=== PATIENT | female | born 1945 | race Hispanic/Latino ===

== ENCOUNTER → 2024-05-16 | Outpatient (CLI) | payer OTHER | END | disposition home or self-care (01) | LOC: RAH 09:00 | PROVIDERS: ATTEND Internal Medicine | DX: Z13.6 Encounter for screening for cardiovascular disorders (principal) | CPT/HCPCS: 75571 ==

== ENCOUNTER 2024-07-21 07:45 | Day surgery (SDC) | payer OTHER, MEDICARE ==
[2024-07-18 10:32] VITALS: BP 123/62; PULSE 66; RESP 18; TEMP 98.1
[2024-07-18 10:48] LABS: BASOPHILS # (AUTO) 0.05 K/uL (0.00-0.20); BASOPHILS % (AUTO) 0.8 % (0.0-5.0); EOSINOPHILS # (AUTO) 0.05 K/uL (0.00-0.70); EOSINOPHILS % (AUTO) 0.8 % (0.0-8.0); HEMATOCRIT 40.9 % (36-48); IMMATURE GRANULOCYTE ABSOLUTE 0.02 K/uL (0-1); LYMPHOCYTES # (AUTO) 1.3 K/uL (1.0-4.8); LYMPHOCYTES % (AUTO) 20.5 % (21.0-51.0); MEAN CORPUSCULAR HEMOGLOBIN 29.1 pg (27.0-33.0); MEAN CORPUSCULAR HGB CONC 32.3 g/dL (32.0-36.0); MEAN CORPUSCULAR VOLUME 90.1 fL (79-99); MONOCYTES # (AUTO) 0.4 K/uL (0.1-1.0); MONOCYTES % (AUTO) 6.7 % (3.0-13.0); NEUTROPHILS # (AUTO) 4.5 K/uL (1.8-7.7); NEUTROPHILS % (AUTO) 70.9 % (40.0-77.0); PLATELET COUNT (AUTO) 227 K/uL (130-400); RED BLOOD CELL COUNT(AUTO) 4.54 MIL/uL (4.00-5.50); RED CELL DISTRIBUTION WIDTH 13.8 % (11.0-15.5); WHITE BLOOD COUNT (AUTO) 6.3 K/uL (4.8-10.8)
[2024-07-18 10:49] LABS: APPEARANCE,URINE CLEAR (CLEAR); BILIRUBIN,URINE NEGATIVE (NEGATIVE); COLOR,URINE COLORLESS (YELLOW); GLUCOSE, URINE (UA) >=1000 mg/dL (NEGATIVE); KETONES,URINE NEGATIVE (NEGATIVE); LEUKOCYTE ESTERASE ,URINE NEGATIVE Leu/uL (NEGATIVE); NITRATE,URINE NEGATIVE (NEGATIVE); PROTEIN,URINE NEGATIVE (NEGATIVE); UROBILINOGEN,URINE 0.2 mg/dL (0.2-1.0)
[2024-07-18 10:52] LABS: ADD UA MICROSCOPIC YES
[2024-07-18 10:57] LABS: INR 1.01 (0.85-1.15); PROTHROMBIN TIME 10.9 SEC (9.6-11.6)
[2024-07-18 10:58] LABS: CREATININE 0.9 mg/dL (0.5-1.0); POTASSIUM 3.6 mmol/L (3.5-5.1)
[2024-07-18 10:59] LABS: MUCUS,URINE RARE LPF (None Seen); RBC,URINE 0-1 /HPF (0-1); SQUAMOUS EPITHELIAL CELL,UR RARE /HPF (0-2); WBC,URINE 0-1 /HPF (0-1)
[2024-07-18 10:59] LABS: PARTIAL THROMBOPLASTIN TIME 27.3 SEC (26.3-35.5)
[2024-07-18 11:20] LABS: B-TYPE NATRIURETIC PEPTIDE 206 pg/mL (0-100)
[~2024-07-21] VITALS: Ht 154.9 cm; Wt 74.2 kg
[2024-07-21] VITALS (9 sets, daily range): BP systolic 105–114; BP diastolic 41–59; PULSE 52–88; RESP 12–18; TEMP 97.3–97.6
[~2024-07-21 07:45] MED LIST: AEC81 PO; CELE200 PO; DOCU100C33 PO; EMPA10TA PO; FURO40TA5 PO; METO-408 PO; OXYB10TA30 PO; PANT40TA55 PO; POTA-364 PO; ROSU10TA72 PO; SACU1TAB PO; VITA800012 PO
[2024-07-21] MEDS: 0.9%NACL 1000ML 1,000 ML IV ONE (08:26)
[2024-07-21] MEDS: metOPROLol sucCINATE 25 MG TAB.SR.24H PO ONE (08:47)
[2024-07-21] MEDS ORDERED: NITROGLYCERIN 50MG VIAL ONE (15:40)
[2024-07-21] MEDS ORDERED: HEParin-NS 1,000 UNIT/500 ML 1,000 ML IV ONE (15:40)
[2024-07-21] MEDS ORDERED: LIDOCAINE HCL 400MG/20ML VIAL ONE (15:40)
[2024-07-21] MEDS ORDERED: IOHEXOL 350 MG/ML 100ML INFUS..BTL IV ONE (15:40)
[2024-07-21] MEDS ORDERED: VERAPAMIL HCL 2.5 MG/ML VIAL ONE (15:40)
[2024-07-21] MEDS ORDERED: HEParin 10,000 UNIT/10ML (1,000 UNIT/ML) VIAL ONE (15:40)
[2024-07-21] MEDS ORDERED: MIDAZOLAM HCL 1 MG/ML 2ML VIAL ONE ×2 (16:05→16:19)
[2024-07-21] MEDS ORDERED: FENTanyl CITRate PF 50 MCG/1 ML 2ML VIAL ONE (16:05)
[2024-07-21] MEDS ORDERED: ATROPINE 1MG SYG IVP ONE (16:40)
[2024-07-21] MEDS ORDERED: 0.9%NACL 1000ML 1,000 ML IV SCH (17:00)
[2024-07-21] MEDS ORDERED: GLUCAGON 1MG KIT 1 MG ML IM PRN (17:00)
[2024-07-21] MEDS ORDERED: DEXTROSE 50%-WATER 50 ML DISP.SYRIN IV PRN (17:00)
== END 2024-07-21 21:00 | disposition home or self-care (01) ==
LOC: DAH 07:45
PROVIDERS: ATTEND Student in an Organized Health Care Education/Training Program
DX: I11.0 Hypertensive heart disease with heart failure (principal); I50.20 Unspecified systolic (congestive) heart failure; I50.84 End stage heart failure; I42.8 Other cardiomyopathies; I44.7 Left bundle-branch block, unspecified; E11.9 Type 2 diabetes mellitus without complications; E78.5 Hyperlipidemia, unspecified; G47.33 Obstructive sleep apnea (adult) (pediatric); Z90.49 Acquired absence of other specified parts of digestive tract; Z79.82 Long term (current) use of aspirin; Z79.899 Other long term (current) drug therapy
CPT/HCPCS: 80048; 83880; 85025; 85610; 85730; 81001; 36415; 71045; 93005; 93458; 82948 ×2; C1887; C1894 ×2; C1769 ×3; C1760; A4649; J3010; J3490 ×3; J7030; J2250 ×2; J1644; Q9967; A4215; A4222; A4221; A4663; A4216; A4606; Q9965 ×2; A4223 ×3; 99156; 99157; J0461

== ENCOUNTER → 2024-10-22 | Outpatient (CLI) | payer OTHER, MEDICARE ==
--- NOTE | 2024-10-22 15:25 | HMCIMG ---
CHEST 2VWS HISTORY: Atherosclerosis, cough COMPARISON: 07/18/2024 FINDINGS: Frontal and lateral projections of the chest were obtained. There are prominent interstitial markings with possible superimposed infiltrates. The heart is borderline enlarged. No evidence of aortic calcification is seen. Degenerative changes are seen of the thoracolumbar spine. IMPRESSION: 1. There are prominent interstitial markings.
== END | disposition home or self-care (01) ==
LOC: RAH 13:49
PROVIDERS: ATTEND Internal Medicine
DX: R06.02 Shortness of breath (principal); R05.9 Cough, unspecified; M47.815 Spondylosis without myelopathy or radiculopathy, thoracolumbar region
CPT/HCPCS: 71046

== ENCOUNTER → 2024-11-05 | Outpatient (CLI) | payer OTHER, MEDICARE ==
[~2024-11-05] MED LIST changes: +0.9%NACL 1000ML 1,000 ML IV ONE; +SPIR25TA6 PO; +TRAM50TA4 PO; +UBID200C37 PO
--- NOTE | 2024-11-05 14:43 | HMCIMG ---
PA AND LATERAL CHEST RADIOGRAPH INDICATION: PNEUMONIA COMPARISON: 10/22/2024 FINDINGS: Extensive hardware overlying the field of view. Heart size is normal. The pulmonary vascularity and oscar appear normal. No abnormal pulmonary parenchymal opacity or consolidation identified. No significant pleural effusion noted. No pneumothorax detected. IMPRESSION: No radiographic evidence for any acute cardiopulmonary process.
== END | disposition home or self-care (01) ==
LOC: RAH 11:09
PROVIDERS: ATTEND Internal Medicine
DX: J18.9 Pneumonia, unspecified organism (principal)
CPT/HCPCS: 71046

== ENCOUNTER 2024-11-07 06:04 | Day surgery (SDC) | payer OTHER, MEDICARE ==
--- NOTE | 2024-11-05 09:34 | EKG ---
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
[2024-11-05 10:05] LABS: BASOPHILS # (AUTO) 0.03 K/uL (0.00-0.20); BASOPHILS % (AUTO) 0.4 % (0.0-5.0); EOSINOPHILS # (AUTO) 0.08 K/uL (0.00-0.70); EOSINOPHILS % (AUTO) 1.2 % (0.0-8.0); HEMATOCRIT 41.6 % (36-48); IMMATURE GRANULOCYTE ABSOLUTE 0.02 K/uL (0-1); LYMPHOCYTES # (AUTO) 1.3 K/uL (1.0-4.8); LYMPHOCYTES % (AUTO) 18.7 % (21.0-51.0); MEAN CORPUSCULAR HEMOGLOBIN 30.7 pg (27.0-33.0); MEAN CORPUSCULAR HGB CONC 33.2 g/dL (32.0-36.0); MEAN CORPUSCULAR VOLUME 92.4 fL (79-99); MONOCYTES # (AUTO) 0.5 K/uL (0.1-1.0); MONOCYTES % (AUTO) 6.6 % (3.0-13.0); NEUTROPHILS # (AUTO) 5.1 K/uL (1.8-7.7); NEUTROPHILS % (AUTO) 72.8 % (40.0-77.0); PLATELET COUNT (AUTO) 255 K/uL (130-400); RED CELL DISTRIBUTION WIDTH 14.1 % (11.0-15.5); WHITE BLOOD COUNT (AUTO) 6.9 K/uL (4.8-10.8)
[2024-11-05 10:15] LABS: POTASSIUM 4.1 mmol/L (3.5-5.1)
[2024-11-05 10:17] LABS: INR <= 0.93 (0.85-1.15); PROTHROMBIN TIME 10.3 SEC (9.6-11.6)
[2024-11-05 10:18] LABS: PARTIAL THROMBOPLASTIN TIME 25.6 SEC (26.3-35.5)
[2024-11-05 10:26] VITALS: BP 131/57; PULSE 68; RESP 13; TEMP 98.1
[~2024-11-07] VITALS: Ht 154.9 cm; Wt 72.3 kg
[~2024-11-07 06:04] MED LIST changes: -0.9%NACL 1000ML 1,000 ML IV ONE; -CELE200 PO; -OXYB10TA30 PO; -POTA-364 PO; -TRAM50TA4 PO
[2024-11-07 06:20] VITALS: BP 111/58; PULSE 70; RESP 18; TEMP 97.7
[2024-11-07] MEDS: 0.9%NACL 1000ML 1,000 ML IV SCH (06:47)
[2024-11-07] MEDS ORDERED: LIDOCAINE HCL 1% MDV 50ML VIAL ONE (07:19)
[2024-11-07] MEDS ORDERED: ceFAZolin SODIUM 1 GM VIAL ONE (07:20)
[2024-11-07] MEDS ORDERED: BUPIvacaine/PF 0.25% 30ML VIAL IJ ONE (07:20)
[2024-11-07] MEDS ORDERED: MIDAZOLAM HCL 1 MG/ML 2ML VIAL ONE ×6 (07:49→11:53)
[2024-11-07] MEDS ORDERED: MEPERIDINE-PF 50 MG/ML SYG ONE ×4 (07:50→11:52)
[2024-11-07] MEDS ORDERED: IOHEXOL-350 75 ML VIAL IV ONE ×2 (07:53→09:51)
[2024-11-07] MEDS ORDERED: TRAM50TA4 PO (14:25)
[2024-11-07] MEDS ORDERED: acetaMINOPHEN WITH coDEINE 1 TAB TAB PO PRN ×2 (14:30→15:00)
[2024-11-07] MEDS ORDERED: acetaMINOPHEN 500 MG TABLET PO PRN (14:30)
[2024-11-07 14:55] VITALS: BP 115/47; PULSE 74; RESP 14; TEMP 97.4
[2024-11-07 15:10] VITALS: BP 115/47; PULSE 76; RESP 14
[2024-11-07 15:25] VITALS: BP 116/47; PULSE 77; RESP 15
[2024-11-07 15:40] VITALS: BP 118/49; PULSE 79; RESP 12
[2024-11-07 15:55] VITALS: BP 114/79; PULSE 74; RESP 14
== END 2024-11-07 16:02 | disposition home or self-care (01) ==
LOC: DAH 06:04
PROVIDERS: ATTEND Internal Medicine Cardiovascular Disease
DX: I42.8 Other cardiomyopathies (principal); I11.0 Hypertensive heart disease with heart failure; I50.40 Unspecified combined systolic (congestive) and diastolic (congestive) heart failure; I44.7 Left bundle-branch block, unspecified; R06.00 Dyspnea, unspecified; E11.9 Type 2 diabetes mellitus without complications; E78.5 Hyperlipidemia, unspecified; G47.33 Obstructive sleep apnea (adult) (pediatric); Z79.82 Long term (current) use of aspirin; Z79.899 Other long term (current) drug therapy
CPT/HCPCS: 80048; 85025; 85610; 85730; 36415; 93005; 33225; 33249; 82948; C1900 ×2; A4223 ×3; C1887 ×2; C1894; C1769 ×3; C1898 ×2; C1882; C1896; C1895; J0690; J0665; J2250 ×6; J2175 ×4; J3490; Q9967 ×2; A4215; A6251; A4222; A4221; A4663; A4216; A6258; A4606; 99156; 99157